=== PATIENT | male | born 1975 | race Caucasian/White ===

== ENCOUNTER 2023-10-13 11:38 | Emergency (ER) | payer OTHER, SELFPAY ==
[2023-10-13 11:49] VITALS: BP 150/84; PULSE 85; RESP 18; TEMP 37.1; O2SAT 100
[2023-10-13 11:50] VITALS: BP 150/84; PULSE 85; RESP 18; TEMP 37.1; O2SAT 100
[2023-10-13 12:26] LABS: EDSTREPNEGPOS1 Negative
--- NOTE | 2023-10-13 22:11 | ED.GENADULT ---
HPI - General Adult General Chief complaint: Upper Respiratory Infection Stated complaint: throat Time Seen by Provider: 10/13/23 11:59 Source: patient, RN notes reviewed and old records reviewed Mode of arrival: ambulatory Limitations: no limitations History of Present Illness HPI narrative: 48-year-old male to [facility] with complaint of sore throat and bilateral ear discomfort since yesterday. Patient reports that of his children is also sick. Patient denies fever, difficulty swallowing, cough, headache, shortness of breath, GI complaints , allergies, pertinent medical history. Patient hypertensive triage. Patient resting in exam room in no acute distress. Respirations even and nonlabored. Patient reports being able to tolerate fluids by mouth. Related Data Allergies Allergy/AdvReac Type Severity Reaction Status Date / Time No Known Allergies Allergy Verified 10/13/23 11:49 Review of Systems Review of Systems: All systems reviewed & are unremarkable except as noted in HPI and below Constitutional: Constitutional: Reports no additional constitutional complaints Eyes: Eyes: Reports no additional eye complaints ENT: Reports as per HPI, Reports otalgia ( Bilateral) and Reports sore throat Cardiovascular: Cardiovascular: Reports no additional cardiovascular complaints, Denies chest pain and Denies dyspnea Respiratory: Respiratory: Reports no additional respiratory complaints, Denies cough and Denies dyspnea Musculoskeletal: Musculoskeletal: Reports no additional musculoskeletal complaints Neurologic: Reports system reviewed and no additional complaints, except as documented Psychiatric: Psychiatric: Reports no additional psychiatric complaints PMFSH Past Medical History Medical History IDDM (insulin dependent diabetes mellitus) Type 1 diabetes Family History Family History Mother Diabetes mellitus Father Hypertension Acute myocardial infarction Social History Social History Smoking packs per day: 0.5 Smoking cigarettes per day: 10.0 Smoking status: Current every day smoker Tobacco type: cigarettes Second hand tobacco smoke exposure: Yes Alcohol intake: current Alcohol use details: Rarely Substance use: never Substance use type: does not use Do You Feel Safe in your Home?: Yes Lack of Transportation: No Lack of Food: Never True Current Housing: I Have Housing Concerned About Future Housing: No Difficulty Paying Gas/Electric Bills: No Difficulty Paying for Meds: No Currently Unemployed: No Education: Associate Degree Difficulty w/ Childcare or Family Care: No Additional occupation/education comments: [employer]KS [employer] Gender identity (if verbalized by the patient): Male Spiritual care concerns: No Agree to blood products: Yes Comments At the time of my signature, I reviewed and agree with the nursing past medical, surgical, social, and family history. There is no relevant family history pertinent to the patient complaint. Exam Const: General: cooperative, no acute distress, well developed, alert, tired appearing, well groomed and well nourished Nutritional Appearance: well nourished Orientation/consciousness: patient oriented x3 Limitations: no limitations HENMT: Head: normal to inspection Ears: external ears normal and TM abnormal with fluid behind the TM bilateral and diffuse Face/Nose/Sinus: Normal external nose present, Normal nares present, normal facial exam, No erythema and No edema Face and sinus: normal facial exam, no erythema and no edema Mouth: Yes Normal oral and palatal mucosa present Throat: posterior oropharynx abnormal erythema Eyes: General: appearance normal, both eyes and all related structures Neck: Neck: normal visual inspection, full ROM and
== END 2023-10-13 12:35 | disposition home or self-care (01) ==
PROVIDERS: Emergency Provider Nurse Practitioner Family
DX: J06.9 Acute upper respiratory infection, unspecified (principal); F17.210 Nicotine dependence, cigarettes, uncomplicated; E10.9 Type 1 diabetes mellitus without complications
CPT/HCPCS: 87081; 87880; 99213; G0463

== ENCOUNTER 2023-10-17 19:59 | Emergency (ER) | payer OTHER, SELFPAY ==
--- NOTE | ~2023-10-17 | CT_ITS ---
CT scan of the Neck Technique: 2.5 mm axial scans were obtained through the neck after intravenous administration of 75 c c Omnipaque 350. Coronal and sagittal reconstructions of the neck were obtained. Dose reduction techn ique was used on this scan by utilizing automated exposure control and iterative reconstruction techn ique. The dose-length product (DLP) was 497.23 mGy-cm. Clinical History: Peritonsillar abscess, swelling Findings: There is marked enlargement of the left palatine tonsil with a 3.6 cm early abscess/phlegmon. There i s associated mass effect with rightward deviation of the airway. There is infiltration of left paraph aryngeal fat. There is reactive bilateral level 2 cervical lymphadenopathy. Parotid and submandibular glands are unremarkable. No other soft tissue masses are seen in the neck. The thyroid gland appears normal. Images of the lung apices reveal no abnormalities. Impression: 3.6 cm left peritonsillar early abscess/phlegmon, with rightward deviation of the airway. Reactive bilateral level 2 cervical lymphadenopathy. Reviewed, dictated and finalized at location . Impression: 3.6 cm left peritonsillar early abscess/phlegmon, with rightward deviation of t he airway. Reactive bilateral level 2 cervical lymphadenopathy.
[2023-10-17 20:13] VITALS: BP 135/70; PULSE 84; RESP 20; TEMP 36.9; O2SAT 100
[2023-10-17] MEDS: AMPICILLIN SULB 3 GM/NS 100 ML 3 GM/100 ML VIAL IVPB (21:21)
--- NOTE | 2023-10-17 21:21 | ED.URI ---
HPI - URI/Sore Throat General Chief Complaint: Upper Respiratory Infection Stated Complaint: sore throat Time Seen by Provider: 10/17/23 20:22 Source: patient Mode of arrival: ambulatory Limitations: no limitations History of Present Illness HPI Narrative: Patient is a 48-year-old male, with PMH of IDDM with insulin pump, who presents to the ED with report of severe sore throat. Patient reports he has had a sore throat since last week. He was seen in urgent care, tested negative for strep throat. Symptoms persisted and he had a virtual visit in which they prescribed amoxicillin. He has been on amoxicillin for 3 days now but denies improvement. States he is now having trouble swallowing his secretions, has significant pain with swallowing causing him to have limited PO intake. Patient difficulty breathing or feeling short of breath. Denies fevers, but has been taking Ibuprofen regularly for pain. Denies vomiting. Related Data Allergies Allergy/AdvReac Type Severity Reaction Status Date / Time No Known Allergies Allergy Verified 10/17/23 20:19 Review of Systems Review of Systems: All systems reviewed & are unremarkable except as noted in HPI. All systems reviewed & are unremarkable except as noted in HPI and below PMFSH Past Medical History Medical History IDDM (insulin dependent diabetes mellitus) Type 1 diabetes Family History Family History Mother Diabetes mellitus Father Hypertension Acute myocardial infarction Social History Social History Smoking packs per day: 0.5 Smoking cigarettes per day: 10.0 Smoking status: Current every day smoker Tobacco type: cigarettes Second hand tobacco smoke exposure: Yes Alcohol intake: current Alcohol use details: Rarely Substance use: never Substance use type: does not use Do You Feel Safe in your Home?: Yes Lack of Transportation: No Lack of Food: Never True Current Housing: I Have Housing Concerned About Future Housing: No Difficulty Paying Gas/Electric Bills: No Difficulty Paying for Meds: No Currently Unemployed: No Education: Associate Degree Difficulty w/ Childcare or Family Care: No Additional occupation/education comments: [employer]KS [employer] Gender identity (if verbalized by the patient): Male Spiritual care concerns: No Agree to blood products: Yes Exam Narrative: GENERAL: Mildly ill and uncomfortable appearing, well-nourished, non-toxic. HEAD: Normocephalic, atraumatic. ENT: MMs dry. Diffuse erythema to posterior pharynx. Moderate swelling noted to left peritonsillar region compared to R with protrusion of soft palate, uvular deviation to the right. No appreciable tonsillar exudate. No stridor, though patient is having to spit secretions into emesis bag. Hoarse quality to voice. RESPIRATORY: Airway patent, respirations nonlabored. Clear to auscultation bilaterally, no rales, rhonchi, wheezing. CARDIOVASCULAR: Regular rate and rhythm MUSCULOSKELETAL: Moves all extremities. No gross deformities. SKIN: Warm, dry, normal color. NEURO: A&O X3. Speech clear. PSYCHIATRIC: Appropriate mood and affect. Normal interaction. Course Vital Signs Vital signs: Vital Signs Temperature 98.4 F 10/17/23 20:13 Pulse Rate 84 10/17/23 20:13 Respiratory Rate 20 10/17/23 20:13 Blood Pressure 135/70 10/17/23 20:13 Pulse Oximetry 100 10/17/23 20:13 Oxygen Delivery Room Air 10/17/23 20:13 Temperature 98.4 F 10/17/23 20:13 Pulse Rate 89 10/18/23 01:20 Respiratory Rate 15 10/18/23 01:20 Blood Pressure 138/92 H 10/18/23 01:20 Pulse Oximetry 100 10/18/23 01:20 Oxygen Delivery Room Air 10/17/23 20:13 Procedures Abscess I/D oral: Date of Incision: 10/18/23 Time of Incision: 0
[2023-10-17] MEDS: SODIUM CHLORIDE 0.9% IV 1,000 ML 999 ML IV CONT (21:25)
[2023-10-17] MEDS: ONDANSETRON INJ 4 MG/2 ML VIAL IV PUSH (21:26)
[2023-10-17 21:27] LABS: Basophils Absolute Auto 0.1 K/mm3 (0.0-0.1); Basophils Percent Auto 0.5 % (0.2-1.2); Eosinophils Absolute Auto 0.2 K/mm3 (0-0.3); Eosinophils Percent Auto 1.2 % (0-4.4); Hematocrit 40.3 % (42.0-52.0); Hemoglobin 13.4 g/dL (14.0-18.0); Immature Granulocyte Absolute 0.08 K/mm3 (0.00-0.031); Immature Granulocyte Percent A 0.4 % (0-0.5); Lymphocytes Absolute Auto 2.06 K/mm3 (0.9-3.2); Lymphocytes Percent Auto 11.1 % (18.3-44.2); Mean Corpuscular HGB Conc 33.3 g/dl (32-36); Mean Corpuscular Hemoglobin 31.4 pg (26-34); Mean Corpuscular Volume 94.4 fl (80-100); Mean Platelet Volume 10.2 fl (7.4-10.4); Monocytes Absolute Auto 2.1 K/mm3 (0.1-0.6); Monocytes Percent Auto 11.5 % (2.6-8.5); Neutrophils Absolute Auto 13.9 K/mm3 (1.3-6.7); Neutrophils Percent Auto 75.3 % (45.5-73.1); Platelet Count Result 352 k/mm3 (150-375); Red Blood Count 4.27 M/mm3 (4.6-6.20); Red Cell Distribution Width 12.9 % (11.5-14.5); White Blood Count 18.5 K/mm3 (4.5-10.0)
[2023-10-17] MEDS: MORPHINE SULFATE (*CRX) 4 MG/ML INJ IV PUSH (21:27)
[2023-10-17] MEDS: dexAMETHasone SOD PHOS INJ 10 MG/ML 1 ML VIAL IV PUSH (21:27)
[2023-10-17 21:32] VITALS: BP 148/82; PULSE 88; RESP 15; O2SAT 99
[2023-10-17 21:43] LABS: Lactic Acid Reflex 0.9 mmol/L (0.7-2.0)
[2023-10-17 21:44] LABS: Alanine Aminotransferase 47 U/L (6-50); Albumin Level 4.4 g/dL (3.5-5.1); Alkaline Phosphatase 146 U/L (38-126); Anion Gap 11 mmol/L (4-12); Aspartate Amino Transferase 32 U/L (17-59); Bilirubin,Total 0.7 mg/dL (0.2-1.3); Blood Urea Nitrogen 23 mg/dL (9-20); Calcium 9.6 mg/dL (8.4-10.2); Carbon Dioxide 29 mmol/L (22-30); Chloride 99 mmol/L (98-107); Estimated CRCL calculation 102 ml/min; Estimated Glomerular Filt Rate > 60; Glucose 179 mg/dL (65-110); Potassium 4.2 mmol/L (3.4-5.0); Sodium 139 mmol/L (137-145)
[2023-10-17 21:48] LABS: Monoscreen Negative (Negative); Negative Monotest Control Negative (Negative); Positive Monotest Control Positive (Positive)
[2023-10-17 21:54] LABS: Strep Group A RT-PCR NOT DETECTED (Negative)
[2023-10-18 01:08] VITALS: BP 134/72; PULSE 88; RESP 15; O2SAT 100
[2023-10-18 01:20] VITALS: BP 138/92; PULSE 89; RESP 15; O2SAT 100
== END 2023-10-18 01:21 | disposition home or self-care (01) ==
PROVIDERS: Emergency Provider Physician Assistant
DX: J36 Peritonsillar abscess (principal); E10.9 Type 1 diabetes mellitus without complications; Z79.4 Long term (current) use of insulin; F17.210 Nicotine dependence, cigarettes, uncomplicated
CPT/HCPCS: 36415; 42700; 70491; 80053; 83605; 85025; 86308; 87651; 96365; 96375; 99281; 99284; A9270; J0295; J1100; J2270; J2405; J7030; Q9967

== ENCOUNTER 2023-10-18 17:08 | Emergency (ER) | payer OTHER, SELFPAY ==
[2023-10-18 17:11] VITALS: BP 146/72; PULSE 85; RESP 18; TEMP 36.5; O2SAT 100
--- NOTE | 2023-10-18 17:19 | ED.GENADULT ---
HPI - General Adult General Chief complaint: Unspecified Stated complaint: pain in tonsil abcess Time Seen by Provider: 10/18/23 17:19 Source: patient Mode of arrival: ambulatory Limitations: no limitations History of Present Illness HPI narrative: This is a 48-year-old male With IDDM who presents to the ED with chief complaint sore throat. 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 He started to developed more swelling today. He is concerned because he was unable to pick this prescription up until this afternoon. he has a wedding and that he is in this week and is leaving for [place] on Wednesday. Denies and inability to swallow, nausea, vomiting, fevers, chills. He is watching his sugars closely. Related Data Allergies Allergy/AdvReac Type Severity Reaction Status Date / Time No Known Allergies Allergy Verified 10/17/23 20:19 Review of Systems Review of Systems: All systems as dictated in [facility] PMFSH Past Medical History Medical History IDDM (insulin dependent diabetes mellitus) Type 1 diabetes Family History Family History Mother Diabetes mellitus Father Hypertension Acute myocardial infarction Social History Social History Smoking packs per day: 0.5 Smoking cigarettes per day: 10.0 Smoking status: Current every day smoker Tobacco type: cigarettes Second hand tobacco smoke exposure: Yes Alcohol intake: current Alcohol use details: Rarely Substance use: never Substance use type: does not use Do You Feel Safe in your Home?: Yes Lack of Transportation: No Lack of Food: Never True Current Housing: I Have Housing Concerned About Future Housing: No Difficulty Paying Gas/Electric Bills: No Difficulty Paying for Meds: No Currently Unemployed: No Education: Associate Degree Difficulty w/ Childcare or Family Care: No Additional occupation/education comments: [employer] Gender identity (if verbalized by the patient): Male Spiritual care concerns: No Agree to blood products: Yes Exam Narrative: GENERAL: Well-appearing, well-nourished, and in no acute distress. HEAD: Normocephalic, atraumatic. EYES: PERRLA and EOMI. ENT: obvious peritonsillar abscess noted to the left side. Active drainage. Uvula deviated. Phonation intact. No trismus or drooling. Nares clear, no rhinorrhea or epistaxis. Mucous membranes moist. NECK: Supple. No adenopathy or masses. CHEST: No respiratory distress. Clear to auscultation. No wheezes rales or rhonchi HEART: Regular rate and rhythm. No murmur heard. Normal peripheral pulses. ABDOMEN: Soft, nontender, nondistended, normal active bowel sounds. MSK: Normal range of motion. No edema. SKIN: Warm, dry, no rash. NEURO: Alert and oriented x4. No focal deficits. PSYCH: Normal mood and affect. Course Vital Signs Vital signs: Vital Signs Temperature 97.7 F 10/18/23 17:11 Pulse Rate 85 10/18/23 17:11 Respiratory Rate 18 10/18/23 17:11 Blood Pressure 146/72 H 10/18/23 17:11 Pulse Oximetry 100 10/18/23 17:11 Oxygen Delivery Room Air 10/18/23 17:11 Temperature 97.7 F 10/18/23 17:11 Pulse Rate 85 10/18/23 17:11 Respiratory Rate 18 10/18/23 17:11 Blood Pressure 146/72 H 10/18/23 17:11 Pulse Oximetry 100 10/18/23 17:11 Oxygen Delivery Room Air 10/18/23 17:11 Medical Decision Making MDM Narrative Medical decision making narrative: This is a 48-year-old male who presents to the ED for chief complaint of sore throat After having CHIEF NURSING OFFICER drained yesterday. Vitals are normal. Exam does show obvious PT on the left side but patient is able to speak clearly and does not have any nausea vomiting. He was only able to because prescriptions up this afternoon. Reassured patient that h
[2023-10-18 17:47] VITALS: RESP 20; O2SAT 100
== END 2023-10-18 17:50 | disposition home or self-care (01) ==
LOC: ANHED 17:36
PROVIDERS: Emergency Provider Physician Assistant
DX: J36 Peritonsillar abscess (principal); E10.9 Type 1 diabetes mellitus without complications; F17.210 Nicotine dependence, cigarettes, uncomplicated
CPT/HCPCS: 99281